=== PATIENT | female | born 1950 | race Caucasian/White ===

== ENCOUNTER 2021-06-10 07:13 | Emergency (ER) | payer MEDICARE, OTHER, SELFPAY ==
[2021-06-10 07:14] VITALS: BP 165/80; PULSE 58; RESP 16; TEMP 36.2; O2SAT 97; BMI 40.2
--- NOTE | 2021-06-10 07:30 | EDS_ITS ---
HPI History of Present Illness Chief Complaint: Complaint Informant: patient Narrative Narrative: Patient is having incontinence issues. These have been going on for a year or 2. She has seen her physician about this. She was referred to a Dr. Murrell who is a urologist in [place]. They have done evaluation and attempted treatment. She was then referred to a urologist up in [facility]. That urologist did a Botox injection back in March 2021 that did not help with her incontinence. She states she wears depends but she still urinates every hour or so. This has been going on for over a year or more. She does take hydrochlorothiazide but this is not a new or different medicine. She states she has external discomfort that has been going on probably since March or April. She had tried self-catheterization in April for about a week but eliezer t did not help. It sounds like she recontacted one of the urologist and I believe they wrote a prescription for Macrobid. It sounds like she is taking it and she has a refill. She denies discharge or bleeding. She is eating and drinking normally. She is moving her bowels normally. She is not having any abdominal pain fevers or chills. She states nothing seems to have helped this. Nothing makes it worse. [facility] Medical History (Updated 06/10/21 @ 09:[address] Gareth Solano MD) Anxiety Coronary artery disease Depression Hypertension Self-catheterizes urinary bladder Home Medications bupropion HCl PO 06/10/21 [History Last Taken Unknown] fluconazole [Diflucan] 150 mg PO DAILY #1 tab 06/10/21 [Rx Last Taken Unknown] losartan 06/10/21 [History Last Taken Unknown] nitrofurantoin macrocrystal 06/10/21 [History Last Taken Unknown] sulfamethoxazole-trimethoprim [Bactrim DS] 1 tab PO BID #14 tab 06/10/21 [Rx Last Taken Unknown] Social History Smoking Status: Never smoker ROS ROS ED Constitutional Constitutional ED: Denies chills, fever(s) or sweats ENT ENT ED: Denies rhinorrhea or sore throat Cardiovascular Cardiovascular: Denies chest pain or palpitations Respiratory/Chest Respiratory/Chest: Denies cough or dyspnea Gastrointestinal Gastrointestinal: Denies abdominal pain, constipation, diarrhea, melena, nausea or vomiting Genitourinary Genitourinary ED: Reports dysuria and urinary frequency; Denies hematuria Musculoskeletal Musculoskeletal: Denies arthralgias, back pain, myalgias or neck pain Integumentary Denies rash Neurologic Neurologic: Denies headache(s) Endocrine Endocrinology: Reports polyuria; Denies polydipsia Allergic/Immunologic Allergic/Immunologic ED: Denies mouth swelling or urticaria EXAM Physical Exam Const Vital Signs: 06/10/21 07:14 Temperature 97.2 F L Temperature Source Temporal Pulse Rate 58 L Respiratory Rate 16 Blood Pressure 165/80 H Blood Pressure Mean 108 Pulse Ox 97 Oxygen Delivery Method Room Air Positive well nourished and well developed General Appearance ED: well developed and NAD HEENT Reports moist mucous membranes Negative for trauma Eyes General Eye ED: Negative for pale conjunctiva Neck no JVD Chest Wall inspection of chest normal Resp normal respiratory effort and clear to auscultation bilaterally Effort and Inspection: Negative for pain with movement Auscultation: Negative for rales, rhonchi or wheezes Cardio regular rate and regular rhythm GI normal to inspection, nondistended, normoactive bowel sounds, non-tender, non- distended and no masses Auscultation: normoactive bowel sounds Palpation: soft; Negative for tender, guarding or rebound tenderness present Back/Spine no CVA tenderness Extremity normal to inspection Neuro oriented x3 Sensorium / Orientation: alert Psych mental status grossly normal Skin no rashes or lesions noted MDM MDM MDM Narrative Medical decision making narrative: I did do exam with nurse in attendance. Normal external genitalia. No sign of yeast infection. Urethra is normal. No abnormality on exam. No discomfort. No masses. Urine does show signs of infection. She has leukocyte esterase, cloudy urine with 25-50 white cells. I will have her stop Macrobid which I believe she is on. We will try a course of Bactrim. As this is the second antibiotic she will be on, I will write for a Diflucan at the end of treatment. She has used that before. We discussed follow-up. She would like referral to the urologist in the area. Lab Data Attestation: I reviewed the patient's lab results. Labs: Laboratory Results - last 24 hr 06/10/21 06/10/21 07:40 07:58 Urine Color Yellow Urine Clarity Sl. Cloudy Urine pH 6.0 Ur Specific [place] 1.015 Urine Protein 30 H Urine Glucose (UA) Normal Urine Ketones Negative Urine Occult Blood 50 H Urine Nitrite Negative Urine Bilirubin Negative Urine Urobilinogen Normal Ur Leukocyte Esterase 500 H Urine RBC 0-5 SEEN Urine WBC 25-50 SEEN Ur Squamous Epith Cells 0 SEEN Urine Bacteria 1+ Urine Mucus 0 SEEN POC Glucose 94 Discharge Plan Triage Chief Complaint: Complaint ED Provider: Gareth Solano Dx/Rx/DC Orders Clinical Impression: Acute UTI, Incontinence in female Instructions: Treating Incontinence in Women ..., ED CYSTITIS Female Adult Prescriptions: New sulfamethoxazole-trimethoprim [Bactrim DS] 800-160 mg tablet 1 tab PO BID Qty: 14 RF: 0 fluconazole [Diflucan] 150 mg tablet 150 mg PO DAILY Qty: 1 RF: 0 No Action losartan 50 mg tablet RF: 0 bupropion HCl 150 mg tablet sustained-release 12 hr PO RF: 0 nitrofurantoin macrocrystal 50 mg capsule RF: 0 Primary Care Provider: Care Physician,No Primary Referrals: Yahaira Moore MD [STAFF PHYSICIAN] - As soon as possible Care Physician,No Primary [Primary Care Provider] - Disposition Disposition: Home, Self Care
[2021-06-10 08:03] LABS: Mucous, Urine 0 SEEN /hpf (<or=2+); Squamous Epithelial Cells - UA 0 SEEN /hpf (5-10)
[2021-06-10 08:06] LABS: Color, Urine Yellow (Yellow); Glucose, Dipstick Normal (Normal); Ketone-Dipstick Negative (Negative); Leukocyte Esterase-Dipstick 500 /ul (Negative); Nitrite-Dipstick Negative (Negative); Occult Blood-Urine 50 /ul (Negative); Protein-Dipstick 30 mg/dl (Negative); Specific Gravity, Urine 1.015 (1.002-1.030); Urine Bilirubin Dipstick Negative (Negative); Urine Clarity Sl. Cloudy (Clear); Urine Urobilinogen Normal (Normal)
[2021-06-10 08:06] LABS: Bedside Glucose 94 mg/dL (70-110)
[2021-06-10 08:16] LABS: Bacteria 1+ /hpf (None Seen); Red Blood Cells-Urine 0-5 SEEN /hpf (0-5); White Blood Cells 25-50 SEEN /hpf (0-5)
== END 2021-06-10 09:43 | disposition home or self-care (01) ==
PROVIDERS: Emergency Provider Emergency Medicine; Visit Provider Emergency Medicine
DX: N39.0 Urinary tract infection, site not specified (principal); I10 Essential (primary) hypertension; I25.10 Atherosclerotic heart disease of native coronary artery without angina pectoris; F41.9 Anxiety disorder, unspecified; F32.A Depression, unspecified; Z79.899 Other long term (current) drug therapy
CPT/HCPCS: 81001; 82962; 87077; 87086; 87088; 87186; 99282

== ENCOUNTER 2024-04-26 03:48 | Emergency (ER) | payer MEDICARE, OTHER, SELFPAY ==
[2024-04-26 03:49] VITALS: BP 129/50; PULSE 75; RESP 18; TEMP 36.6; O2SAT 97; BMI 34.7
--- NOTE | 2024-04-26 04:11 | RAD_ITS ---
EXAM: XR RIGHT RIBS AND AP CHEST, 3 OR MORE VIEWS CLINICAL INDICATION: pain TECHNIQUE: Frontal and oblique views of the right ribs and frontal view of the chest. COMPARISON: No relevant prior studies available. FINDINGS: LUNGS AND PLEURAL SPACES: No acute pulmonary infiltrates or pleural fluid collection. No pneumothorax. HEART: Heart size is borderline enlarged with normal pulmonary vasculature. MEDIASTINUM: Mild-moderate elongation of the thoracic aorta. BONES/JOINTS: There are old/well-healed fractures of the right fourth-eighth ribs, with acute nondisplaced fractures of the lateral right seventh and eighth ribs. Thoracolumbar degenerative spurring. Lower lumbar pedicle screws and rods. UPPER ABDOMEN: Cholecystectomy clips. RAD/Ribs Uni Min 3V w/PA Chest IMPRESSION: Multiple old right rib fractures. Acute nondisplaced fractures of the lateral right seventh and eighth ribs. No pneumothorax or hemothorax identified. Electronically Signed: Narendra Rdz MD at 6:31 EST ,
--- NOTE | 2024-04-26 04:11 | RAD_ITS ---
EXAM: XR PELVIS, 1 OR 2 VIEWS CLINICAL INDICATION: fall TECHNIQUE: Frontal view of the pelvis. COMPARISON: No relevant prior studies available. FINDINGS: BONES/JOINTS: Previous midline lumbar laminectomy and posterior infusion, with pedicle screws and rods visualized extending from L3 to S1. Bone graft donor site along the lateral aspect of the right iliac wing. No destructive or sclerotic lesions. Note that overlapping bowel shadows may however obscure fine detail. Sacroiliac joints are unremarkable. No widening of the pubic symphysis. The articular structures are unremarkable. No acute fracture or dislocation. SOFT TISSUES: Unremarkable. No soft tissue swelling or gas. RAD/Pelvis 1 or 2 Views IMPRESSION: 1. Previous lumbar laminectomy and fusion with bone graft donor site along the lateral aspect of the right iliac wing. 2. No acute fracture or dislocation. Electronically Signed: Narendra Rdz MD at 6:33 EST ,
--- NOTE | 2024-04-26 04:11 | CT_ITS ---
EXAM: CT HEAD WITHOUT INTRAVENOUS CONTRAST CLINICAL INDICATION: head injury TECHNIQUE: Multiple axial images were obtained of the head without intravenous contrast. This CT exam was performed using one or more of the following dose reduction techniques: automated exposure control, adjustment of the mA and/or kV according to patient size, and/or use of iterative reconstruction technique. RADIATION DOSE: Total DLP: 779.24 mGy-cm. COMPARISON: No relevant prior studies available. FINDINGS: BRAIN AND EXTRA-AXIAL SPACES: Findings of mild-moderate atrophy present with prominence of the cortical sulci, basal cisterns, sylvian fissures and ventricles. Extensive patchy chronic small vessel ischemic changes noted within the deep and subcortical white matter tracts. No intra- or extra-axial hemorrhage. No intracranial mass or mass effect. Posterior fossa structures are unremarkable. BONES/JOINTS: Unremarkable. No discrete lytic or blastic abnormalities. No linear or depressed skull fracture. SOFT TISSUES: Unremarkable. No scalp hematoma. VASCULATURE: Atherosclerotic vascular calcification is present. The middle cerebral arteries are not hyperdense. SINUSES: Unremarkable as visualized. Clear. MASTOID AIR CELLS: Unremarkable. Clear. ORBITS: Previous cataract extraction. CT/Brain/Head without Contrast IMPRESSION: 1. Atrophy with chronic small vessel ischemic changes. 2. No skull fracture or acute intracranial hemorrhage. Electronically Signed: Narendra Rdz MD at 5:44 EST ,
--- NOTE | 2024-04-26 04:11 | CT_ITS ---
EXAM: CT CERVICAL SPINE WITHOUT INTRAVENOUS CONTRAST CLINICAL INDICATION: fall TECHNIQUE: Helically acquired images were obtained of the cervical spine without intravenous contrast. 2D reformatted images were reviewed. This CT exam was performed using one or more of the following dose reduction techniques: automated exposure control, adjustment of the mA and/or kV according to patient size, and/or use of iterative reconstruction technique. RADIATION DOSE: Total DLP: 486.86 mGy-cm. COMPARISON: No relevant prior studies available. FINDINGS: VERTEBRAE: Cervical vertebrae demonstrate normal curvature and alignment, except for slight anterior subluxation of C7 on T1; the C7/T1 disc space is partially fused and the facet joints are fused at this level. No compression fracture, posterior element fracture or facet dislocation. The odontoid is intact. Extensive cervical facet arthritis is present. DISCS/SPINAL CANAL/NEURAL FORAMINA: C3/4 disc space shows [id number] degenerative narrowing with marginal osteophytes. C4/5 disc space is relatively preserved, with marginal osteophytes. C5/6 and C6/7 disc spaces show moderately severe degenerative narrowing with large marginal osteophytes and endplate sclerosis. Broad-based annular bulges and posterior osteophytes flatten the ventral aspect of the thecal sac at the degenerated C3/4, C5/6 and C6/7 levels. No critical thecal sac stenosis. Multilevel neural foraminal encroachment is present due to facet and uncinate hypertrophy, most severe on the right at C3/4 and on the right at C5/6. SOFT TISSUES: Unremarkable. No prevertebral soft tissue swelling. LUNG APICES: Calcified granuloma incidentally noted at the left lung apex. No apical pneumothorax. Visualized upper ribs are intact. CT/Spine Cervical without Contras IMPRESSION: Extensive cervical degenerative changes. No acute fracture or traumatic subluxation. Electronically Signed: Narendra Rdz MD at 5:50 EST ,
[2024-04-26] MEDS: Ondansetron ODT 4 MG Tablet PO (04:21)
--- NOTE | 2024-04-26 04:21 | EX.ED.DYSGE1 ---
HPI History of Present Illness Chief Complaint: Fall Informant: patient, family and EMS Narrative Narrative: Patient is a 73-year-old female with past medical history of hypertension CAD anxiety and depression as well as generalized weakness. Patient states that she needs a walker to get around and is even having a physical therapist come to the house for in-home rehab once a week. Family states that despite the walker and physical therapy lessons patient still having bouts of generalized weakness where she will fall despite using her walker. Family states patient had a mechanical fall around midnight and they were able to help her up and then around 2 in the morning she had a repeat fall. Patient admits that the fall was related to generalized weakness and that there was not palpitations dizziness or syncope prior to the event. She does admit to hitting her head but denies any loss of consciousness and states she does not have a history of bleeding disorder nor does she take blood thinners other than a baby aspirin. She admits to pain in her right chest/rib cage at this time and has concern for rib fracture and with this was sent to the ER for evaluation [facility] Medical History Anxiety Depression Self-catheterizes urinary bladder Coronary artery disease Hypertension Home Medications ?Medication ?Instructions ?Recorded ?Last Taken ?Type bupropion HCl 150 mg tablet,12 hr PO 06/10/21 Unknown History sustained-release fluconazole 150 mg tablet 150 mg PO DAILY #1 TAB 06/10/21 Unknown Rx (Diflucan) losartan 50 mg tablet 06/10/21 Unknown History nitrofurantoin macrocrystal 50 mg 06/10/21 Unknown History capsule sulfamethoxazole 800 1 tab PO BID #14 tabs 06/10/21 Unknown Rx mg-trimethoprim 160 mg tablet (Bactrim DS) atorvastatin 80 mg tablet 80 mg PO DAILY 04/26/24 Unknown History metoprolol tartrate 25 mg tablet 12.5 mg PO BID 04/26/24 Unknown History nitrofurantoin 1 cap PO BID 04/26/24 Unknown History monohydrate/macrocrystals 100 mg capsule ondansetron 4 mg disintegrating 4 mg PO TID PRN nausea and 04/26/24 Unknown Rx tablet vomiting #21 tabs oxycodone 5 mg tablet 5 mg PO Q6H PRN pain 5 days #20 04/26/24 Unknown Rx tabs sertraline 100 mg tablet 100 mg PO DAILY 04/26/24 Unknown History trazodone 50 mg tablet 50 mg PO QHS PRN PRN insomnia 04/26/24 Unknown History Allergy/AdvReac Type Severity Reaction Status Date / Time atorvastatin (From Lipitor) Allergy Mild Hives Verified 04/26/24 03:55 Social History Smoking Status: Never smoker ROS ROS ED Constitutional Constitutional ED: Denies chills or fever(s) Eyes Eyes: Denies blurry vision or change in vision ENT ENT ED: Denies sore throat Cardiovascular Cardiovascular: Reports other Details: Negative syncope ; Denies chest pain, palpitations or racing heartbeat Respiratory/Chest Respiratory/Chest: Denies cough or dyspnea Gastrointestinal Gastrointestinal: Denies abdominal pain, diarrhea, nausea or vomiting Musculoskeletal Musculoskeletal: Reports other Details: Positive right rib pain ; Denies back pain or neck pain Integumentary Denies Abrasions Neurologic Neurologic: Reports other Details: Negative dizziness ; Denies headache(s) Psychiatric Psychiatric: Denies anxiety or depression Hematologic/Lymphatic Hematologic/Lymphatic: Denies easy bleeding or easy bruising EXAM Physical Exam Const Vital Signs: 04/26/24 03:49 04/26/24 04:26 Temperature 98 F Temperature Source Oral Pulse Rate 75 Respiratory Rate 18 Respiratory Effort Normal Non-Labored Respiratory Depth Normal Respiratory Pattern Normal Blood Pressure 129/50 H Blood Pressure Mean 76 Pulse Ox 97 Oxygen Delivery Method Room Air Room Air Positive well nourished, well developed and obese General Appearance ED: well developed; Negative for pallor Nutritional Appearance: obese HEENT HEENT Narrative: No signs of depressed or basilar skull fracture Eyes PERRL and EOMs intact bilaterally Neck supple Neck Narrative: No bony deformity or step-off of the cervical spine no midline tenderness to palpation Chest Wall Chest Narrative: There is reproducible right anterior lateral chest wall pain rib regions 8-12 without bony deformity crepitance or subcutaneous emphysema Resp normal respiratory effort and clear to auscultation bilaterally Resp Narrative: Breath sounds are diminished throughout but overall clear to auscultation without signs of respiratory distress Cardio regular rate and regular rhythm Rate: other Other Details: Heart is regular rate and rhythm Radial and carotid pulses are equal and symmetric GI normal to inspection, nondistended, normoactive bowel sounds, non-tender, non-distended and no masses GI Narrative: No abrasions or ecchymosis across the anterior abdominal wall noted Abdomen is soft nontender nondistended with normal active bowel sounds. No voluntary guarding or rigidity or pulsatile mass Auscultation: normoactive bowel sounds Palpation: soft Back/Spine Back/Spine Narrative: No bony deformity or step-off of the thoracic or lumbar spine no midline tenderness to palpation Extremity Extremity Narrative: Pelvis is stable there is no shortening or external rotation of either lower extremity Patient is able to lift both arms and legs with strength plus 4 out of 5 No bony deformity or joint effusions noted Compartments are soft and compressible going against compartment syndrome Neuro oriented x3, CN's II-XII intact bilaterally and no sensory deficits noted Sensorium / Orientation: alert Psych mental status grossly normal Skin no rashes or lesions noted and no wounds General Skin Exam: Negative for jaundice or pallor MDM MDM MDM Narrative Medical decision making narrative: Patient arrived to the ER with stable vitals. She reported a mechanical fall and has a known history of generalized weakness having to use a walker to get around at baseline and already having in-home physical therapy once weekly. As the patient denies dizziness or lightheadedness or palpitations prior to the event I do not feel there is need for cardiac or syncope workup. However as she did fall and strike her head there is concern for traumatic skull fracture versus traumatic subarachnoid or subdural hemorrhage. There is also concern for cervical compression fracture versus spinal thesis so CTs of the head and cervical spine were ordered. With right rib pain status post fall there is concern for rib contusion versus rib fracture versus pneumothorax so a right rib series was obtained as well. CT of the head and neck revealed age-related changes without acute trauma. Pelvis x-ray revealed no acute fracture or dislocation. Rib series showed a right seventh and eighth rib fracture without hemothorax or pneumothorax. The patient's pain was controlled with the provided medication and her vitals were stable. I discussed potential placement secondary to her debility and now rib fractures but patient and family wish for her to return home and therefore should be discharged with symptomatic medication as patient and family desire. History & Record Review Discussion w/independent historian: EMS personnel, Patient and Family Radiography Diagnostic Testing: Clinical Impression(s) from Imaging Studies Brain CT 04/26/24 04:11 IMPRESSION: 1. Atrophy with chronic small vessel ischemic changes. 2. No skull fracture or acute intracranial hemorrhage. Electronically Signed: Narendra Rdz MD at 5:44 EST , Cervical Spine CT 04/26/24 04:11 IMPRESSION: Extensive cervical degenerative changes. No acute fracture or traumatic subluxation. Electronically Signed: Narendra Rdz MD at 5:50 EST , Pelvis X-Ray 04/26/24 04:11 IMPRESSION: 1. Previous lumbar laminectomy and fusion with bone graft donor site along the lateral aspect of the right iliac wing. 2. No acute fracture or dislocation. Electronically Signed: Narendra Rdz MD at 6:33 EST , Ribs w/Chest X-Ray 04/26/24 04:11 IMPRESSION: Multiple old right rib fractures. Acute nondisplaced fractures of the lateral right seventh and eighth ribs. No pneumothorax or hemothorax identified. Electronically Signed: Narendra Rdz MD at 6:31 EST , Right rib series with 1 view chest as interpreted by the emergency medicine physician reveals displaced fractures of the right eighth and ninth rib without hemothorax or pneumothorax 1 view pelvis x-ray as interpreted by the emergency medicine physician reveals osteoarthritic/degenerative changes without acute fracture or dislocation Discharge Plan Triage Chief Complaint: Fall ED Provider: Tyler France Dx/Rx/DC Orders Clinical Impression: Rib fractures, Hypertension, Anxiety and depression Instructions: ED Rib Fracture, ED Fall Prevention Prescriptions: New oxycodone 5 mg tablet 5 mg PO Q6H PRN (Reason: pain) 5 Days Qty: 20 0RF ondansetron 4 mg tablet,disintegrating 4 mg PO TID PRN (Reason: nausea and vomiting) Qty: 21 0RF No Action losartan 50 mg tablet bupropion HCl 150 mg tablet sustained-release 12 hr PO nitrofurantoin macrocrystal 50 mg capsule sulfamethoxazole-trimethoprim [Bactrim DS] 800-160 mg tablet 1 tab PO BID Qty: 14 0RF fluconazole [Diflucan] 150 mg tablet 150 mg PO DAILY Qty: 1 0RF Rx Instructions: Once after Bactrim antibiotics are done atorvastatin 80 mg tablet 80 mg PO DAILY trazodone 50 mg tablet 50 mg PO QHS PRN PRN (Reason: insomnia) sertraline 100 mg tablet 100 mg PO DAILY metoprolol tartrate 25 mg tablet 12.5 mg PO BID nitrofurantoin monohyd/m-cryst 100 mg capsule 1 cap PO BID Primary Care Provider: Tish Mcnamara Referrals: Tish Mcnamara MD [Primary Care Provider] - Activity Restrictions/Additional Instructions: Your workup did not show a skull fracture or brain bleed or broken neck but it did show a broken right seventh and eighth ribs. This can take 6 to 8 weeks to heal completely. Use the lidocaine patches you have as well as the oxycodone for pain relief. Continue to take 1 deep breath from your incentive spirometer each hour you are awake to prevent splinting with respiration and pneumonia. Return to the ER should you have any further concerns Print Language: Chinese Disposition Disposition: Home, Self Care
[2024-04-26] MEDS: Morphine 4 MG/ML Syringe IM (04:22)
[2024-04-26 07:00] VITALS: BP 128/58; PULSE 75; RESP 18; TEMP 37.1; O2SAT 99
== END 2024-04-26 07:16 | disposition home or self-care (01) ==
PROVIDERS: Emergency Provider Emergency Medicine; PCP Family Medicine; Visit Provider Emergency Medicine
DX: S22.41XA Multiple fractures of ribs, right side, initial encounter for closed fracture (principal); S09.90XA Unspecified injury of head, initial encounter; W19.XXXA Unspecified fall, initial encounter; R29.6 Repeated falls; I10 Essential (primary) hypertension; F32.A Depression, unspecified; I25.10 Atherosclerotic heart disease of native coronary artery without angina pectoris; F41.9 Anxiety disorder, unspecified; Z79.899 Other long term (current) drug therapy
CPT/HCPCS: 70450; 71101; 72125; 72170; 96372; 99284

== ENCOUNTER 2024-10-02 16:50 | Emergency (ER) | payer MEDICARE, OTHER, SELFPAY ==
[2024-10-02 16:51] VITALS: BP 150/68; PULSE 74; RESP 16; TEMP 36.9; O2SAT 96; BMI 33.4
--- NOTE | 2024-10-02 17:45 | CT_ITS ---
PROCEDURE: SPINE CERVICAL WITHOUT CONTRAS 10/02/2024 REASON FOR EXAM: TRAUMA TECHNIQUE: SPINE CERVICAL WITHOUT CONTRAS Coronal and Sagittal reconstruction series were provided One or more dose reduction techniques were used (e.g., Automated exposure control, adjustment of the mA and/or kV according to patient size, use of iterative reconstruction technique RADIATION DOSE SUMMARY: CTDlvol: 22.8 mGy DLP: 466 mGycm COMPARISON: CT cervical spine on 04/26/2024 FINDINGS: Patient motion limits this evaluation. Vertebral body heights and alignment are maintained. No displaced fracture. There are moderate multilevel degenerative changes, worst at C5-6 and C6-7. Soft tissues are unremarkable. CT/Spine Cervical without Contras IMPRESSION: No acute osseous abnormality of the cervical spine. Reading Location: [id number]
--- NOTE | 2024-10-02 17:45 | CT_ITS ---
PROCEDURE: BRAIN/HEAD WITHOUT CONTRAST 10/02/2024 REASON FOR EXAM: TRAUMA TECHNIQUE: BRAIN/HEAD WITHOUT CONTRAST Coronal and Sagittal reconstruction series were provided. One or more dose reduction techniques were used (e.g., Automated exposure control, adjustment of the mA and/or kV according to patient size, use of iterative reconstruction technique. RADIATION DOSE SUMMARY: CTDlvol: 45.0 mGy DLP: 1211 mGycm COMPARISON: CT head on 04/26/2019 FINDINGS: Brain: No acute intracranial hemorrhage, mass effect, or midline shift. Extensive low density in the deep cerebral white matter most likely represents advanced chronic small vessel ischemic disease. CSF Spaces: Moderate generalized cerebral atrophy Sinuses/Mastoids: Small bilateral mastoid effusions, unchanged. Bones: No displaced fracture or significant scalp hematoma. Bilateral cataract extraction. CT/Brain/Head without Contrast IMPRESSION: No acute intracranial abnormality. Senescent changes. Reading Location: [id number]
--- NOTE | 2024-10-02 17:46 | ED.VIS.FALL ---
HPI HPI - Fall History of Present Illness Chief Complaint: Fall Narrative Narrative: 73-year-old female past medical history of frequent falls, presents status post fall today at around 2 PM, approximately 3 and half hours ago. She states that she loses her balance and her feet kick going backwards, and she ends up falling. She fell 4 times yesterday and 1 time today. She denies loss of consciousness but fell on hardwood floor and hit the back of her head. She complains of mild headache, and pain in the occiput. She has pain at the base of her right neck as well. She denies other symptoms. No prodromal symptoms. She was laying on the ground for approximately 1 hour until her son arrived, and EMS as well. She does not take blood thinners. [facility] Medical History Anxiety Depression Self-catheterizes urinary bladder Coronary artery disease Hypertension Home Medications ?Medication ?Instructions ?Recorded ?Last Taken ?Type bupropion HCl 150 mg tablet,12 hr PO 06/10/21 Unknown History sustained-release fluconazole 150 mg tablet 150 mg PO DAILY #1 TAB 06/10/21 Unknown Rx (Diflucan) losartan 50 mg tablet 06/10/21 Unknown History nitrofurantoin macrocrystal 50 mg 06/10/21 Unknown History capsule sulfamethoxazole 800 1 tab PO BID #14 tabs 06/10/21 Unknown Rx mg-trimethoprim 160 mg tablet (Bactrim DS) atorvastatin 80 mg tablet 80 mg PO DAILY 04/26/24 Unknown History metoprolol tartrate 25 mg tablet 12.5 mg PO BID 04/26/24 Unknown History nitrofurantoin 1 cap PO BID 04/26/24 Unknown History monohydrate/macrocrystals 100 mg capsule ondansetron 4 mg disintegrating 4 mg PO TID PRN nausea and 04/26/24 Unknown Rx tablet vomiting #21 tabs oxycodone 5 mg tablet 5 mg PO Q6H PRN pain 5 days #20 04/26/24 Unknown Rx tabs sertraline 100 mg tablet 100 mg PO DAILY 04/26/24 Unknown History trazodone 50 mg tablet 50 mg PO QHS PRN PRN insomnia 04/26/24 Unknown History Allergy/AdvReac Type Severity Reaction Status Date / Time atorvastatin (From Lipitor) Allergy Mild Hives Verified 04/26/24 03:55 Social History Smoking Status: Never smoker ROS ROS ED ROS Narrative Review of systems positive for mild headache/occipital pain status post fall, no loss of consciousness. Pain at base of right neck. No prodromal symptoms such as chest pain or shortness of breath. EXAM Physical Exam Narrative Exam Narrative: Afebrile. Vital signs noted. GCS 15. ABCs intact. Examination of the occiput shows mild bruising and tenderness but no crepitance. No vertebral point tenderness or bony step-off of cervical spine. Mild tenderness to palpation right cervical paraspinal muscles. Full range of motion of neck without pain. Cardiovascular examination regular rate and rhythm. Lungs are clear to auscultation bilaterally. Abdomen soft and nontender with normal active bowel sounds. Able to raise bilateral legs off bed alternatively without difficulty. Const Vital Signs: 10/02/24 16:51 10/02/24 16:51 Temperature 98.5 F Temperature Source Oral Pulse Rate 74 Respiratory Rate 16 Respiratory Effort Normal Non-Labored Respiratory Depth Normal Respiratory Pattern Normal Blood Pressure 150/68 H Blood Pressure Mean 95 Pulse Ox 96 Oxygen Delivery Method Room Air Room Air MDM MDM MDM Narrative Medical decision making narrative: Differential diagnosis includes but not limited to occipital hematoma with closed head injury versus intracranial hemorrhage versus skull fracture versus cervical spine fracture versus strain/sprain. I have low suspicion for rhabdomyolysis, but patient will be bolused IV fluids and CPK checked as she was on the floor for approximately 1 hour, unable to get up. CT imaging will be obtained of the brain and C-spine, and CBC, BMP checked as well. I reviewed her laboratory work and she has a white count slightly elevated 11.8 which I think is nonspecific, hemoglobin 11.1, hematocrit 33.9, platelet count normal at 281. BMP shows BUN slightly elevated 21 with creatinine normal at 1.14, glucose appropriately elevated at 114 with a normal anion gap of 12. Creatinine kinase normal at 165. I reviewed the radiology report of the CT of the brain and there is no acute intracranial hemorrhage, no skull fracture. I reviewed the radiology report as well of the CT of the cervical spine and there is no acute fracture. At this point in time, she requested medication for her headache from her closed head injury. She was administered Tylenol 1 g orally which she usually takes at home. At this point in time, I feel she can be discharged to follow-up with her primary care provider. Return instructions to the emergency department were reviewed. Disposition is discharged home in stable condition. History & Record Review Discussion w/independent historian: Patient Additional record(s) reviewed:: Prior ED visit Lab Data Attestation: I reviewed the patient's lab results. Labs: Laboratory Results - last 24 hr 10/02/24 16:22 WBC 11.8 H RBC 3.59 L Hgb 11.1 L Hct 33.9 L MCV 94.4 MCH 30.9 MCHC 32.7 RDW Std Deviation 42.9 RDW Coeff of Analisa 12.4 Plt Count 281 MPV 9.0 Immature Gran % (Auto) 0.300 Neut % (Auto) 74.6 H Lymph % (Auto) 13.9 L Tripp % (Auto) 9.4 Eos % (Auto) 1.4 Baso % (Auto) 0.4 Absolute Neuts (auto) 8.8 H Absolute Lymphs (auto) 1.63 Nucleated RBC % 0 Sodium 139 Potassium 3.6 Chloride 104 Carbon Dioxide 24.0 Anion Gap 12 BUN 21 H Creatinine 1.14 Estim Creat Clear Calc 43.21 L Est GFR (MDRD) Non-Af 51 L BUN/Creatinine Ratio 18.1 Glucose 114 H Calcium 9.7 Total Creatine Kinase 165 Radiography Diagnostic Testing: Clinical Impression(s) from Imaging Studies Brain CT 10/02/24 17:45 IMPRESSION: No acute intracranial abnormality. Senescent changes. Reading Location: [facility] Cervical Spine CT 10/02/24 17:45 IMPRESSION: No acute osseous abnormality of the cervical spine. Reading Location: [id number] Discharge Plan Triage Chief Complaint: Fall Other Complaint: Complaint ED Provider: Tanner Mathew Dx/Rx/DC Orders Clinical Impression: Fall, Contusion of occipital region of scalp, Neck strain Instructions: ED Scalp Contusion, ED Mechanical Fall, ED Head Injury (Adult), ED Neck Sprain or Strain Prescriptions: No Action losartan 50 mg tablet bupropion HCl 150 mg tablet sustained-release 12 hr PO nitrofurantoin macrocrystal 50 mg capsule sulfamethoxazole-trimethoprim [Bactrim DS] 800-160 mg tablet 1 tab PO BID Qty: 14 0RF fluconazole [Diflucan] 150 mg tablet 150 mg PO DAILY Qty: 1 0RF Rx Instructions: Once after Bactrim antibiotics are done atorvastatin 80 mg tablet 80 mg PO DAILY trazodone 50 mg tablet 50 mg PO QHS PRN PRN (Reason: insomnia) sertraline 100 mg tablet 100 mg PO DAILY metoprolol tartrate 25 mg tablet 12.5 mg PO BID nitrofurantoin monohyd/m-cryst 100 mg capsule 1 cap PO BID oxycodone 5 mg tablet 5 mg PO Q6H PRN (Reason: pain) 5 Days Qty: 20 0RF ondansetron 4 mg tablet,disintegrating 4 mg PO TID PRN (Reason: nausea and vomiting) Qty: 21 0RF Primary Care Provider: Tish Mcnamara Referrals: Tish Mcnamara MD [Primary Care Provider] - As soon as possible Activity Restrictions/Additional Instructions: Ice to affected area. Tylenol as needed for pain. Return with new or worsening symptoms. Print Language: Grenadian Disposition Disposition: Home, Self Care
[2024-10-02 17:55] LABS: Absolute Lymphocyte Count 1.63 X10^3/uL (0.83-4.51); Absolute Neutrophil Count 8.8 X10^3/uL (2.0-7.7); Basophil# 0.05 X10^3/uL; Basophil% 0.4 % (0-1); Eosinophil# 0.16 X10^3/uL; Eosinophils% 1.4 % (0-5); Hematocrit 33.9 % (37-47); Hemoglobin 11.1 g/dL (12.0-15.0); Lymphocyte # 1.63 X10^3/ul (0.83-4.51); Lymphocyte % 13.9 % (19-41); Mean Corp Hgb Conc 32.7 g/dL (32-36); Mean Corpuscular Hgb 30.9 pg (27.0-32.0); Mean Corpuscular Volume 94.4 fL (81-99); Monocyte% 9.4 % (0-10); NRBC Flagged by Analyzer 0 % (0-5); Neutrophil # 8.77 X10^3/uL (2.7-7.7); Neutrophil % 74.6 % (47-70); Platelet Count 281 K/mm3 (150-450); RBC Distribution Width CV 12.4 % (11.6-14.6); RBC Distribution Width SD 42.9 fl (35.1-43.9); Red Blood Count 3.59 M/mm3 (4.2-5.4); White Blood Count 11.8 K/mm3 (4.4-11.0)
[2024-10-02 18:26] LABS: Anion Gap 12 (5-15); BUN 21 mg/dL (4-19); BUN/Creat Ratio 18.1 RATIO (10-20); CPK Total, Creatine Kinase 165 U/L (24-195); Calcium,Total 9.7 mg/dL (7.6-11.0); Chloride 104 mmol/L (98-108); Creatinine, Serum 1.14 mg/dL (0.70-1.20); EST Glomerular Filtration Rate 51 (>60); Estimated Creatinine Clearance 43.21 ml/min (50-250); Glucose 114 mg/dL (70-99); Potassium 3.6 mmol/L (3.3-5.1); Sodium Level 139 mmol/L (133-145)
[2024-10-02 19:01] VITALS: BP 127/67; PULSE 75; RESP 13; O2SAT 99
[2024-10-02 19:02] VITALS: BP 127/67; PULSE 75; RESP 13; TEMP 37; O2SAT 99
[2024-10-02] MEDS: Acetaminophen 500 MG Tablet 1000 MG PO (19:08)
== END 2024-10-02 19:20 | disposition home or self-care (01) ==
PROVIDERS: Emergency Provider Emergency Medicine; PCP Family Medicine; Visit Provider Emergency Medicine
DX: S16.1XXA Strain of muscle, fascia and tendon at neck level, initial encounter (principal); I25.10 Atherosclerotic heart disease of native coronary artery without angina pectoris; S00.03XA Contusion of scalp, initial encounter; W01.10XA Fall on same level from slipping, tripping and stumbling with subsequent striking against unspecified object, initial encounter; R29.6 Repeated falls; I10 Essential (primary) hypertension; F32.A Depression, unspecified; F41.9 Anxiety disorder, unspecified; Z79.899 Other long term (current) drug therapy
CPT/HCPCS: 70450; 72125; 80048; 82550; 85025; 99285